=== PATIENT | female | born 1955 | race Caucasian/White ===

== ENCOUNTER → 2019-09-03 | Outpatient (CLI) | payer BC ==
--- NOTE | 2019-09-03 09:43 | FL ---
Barium swallow HISTORY: Dysphagia, weight loss, gastroesophageal reflux disease Patient was given high density barium to drink. Spot images obtained. 1 minute 11 seconds fluoroscopy time, 32 images document the procedure Swallowing mechanism is normal. There is no gastroesophageal reflux or hiatal hernia evident. Tertiar y esophageal contractions were identified. IMPRESSION: Tertiary esophageal contractions. Gastroesophageal reflux not identified during the exam.
== END | disposition home or self-care (01) ==
LOC: RADUSWWP 08:52
PROVIDERS: ATTEND Family Medicine
DX: K22.8 Other specified diseases of esophagus (principal)
CPT/HCPCS: 74220

== ENCOUNTER → 2019-10-26 | Outpatient (CLI) | payer BC ==
--- NOTE | 2019-10-26 16:56 | BD ---
EXAMINATION TYPE: Axial Bone Density DATE OF EXAM: 10/26/2019 COMPARISON: NONE CLINICAL HISTORY: 64-year-old female other disorders of continuing bone, postmenopausal screening Height: 5 FT 2 1/4 IN Weight: 138 FRAX RISK QUESTIONS: Alcohol (3 or more units per day): NO Family History (Parent hip fracture): NO Glucocorticoids (More than 3mos): NO (Ex: prednisone, prednisolone, methylprednisolone, dexamethasone, and hydrocortisone). History of Fracture in Adulthood: NO Secondary Osteoporosis: 1. Type 1 Diabetes: NO 2. Hyperthyroidism: NO 3. Menopause before 45: YES 4. Malnutrition: NO 5. Chronic liver disease: NO Rheumatoid Arthritis: NO Current Tobacco Use: NO RISK FACTORS HISTORY OF: Active: YES Postmenopausal woman: PART HYST AGE 42 SYMPTOMS AGE 43 Lost more than 2 inches in height since high school: YES MEDICATIONS: Additional Medications: AMLODIPINE, WATER PILL, Additional History: LEFT ANKLE REPLACED, CELIAC DISEASE EXAM MEASUREMENTS: Bone mineral densitometry was performed using the [employer] System. Bone mineral density as measured about the Lumbar spine is: ----- L1-L4(G/cm2): 1.351 T Score Values are as follows: ----- L2: 1.6 ----- L3: 2.8 ----- L4: 1.2 ----- L1-L4: 1.4 Bone mineral density has: INCREASED 9.8 % since study of: 2008 Bone mineral density about the R hip (g/cm2): 0.747 Bone mineral density about the L hip (g/cm2): 0.782 T Score values are as follows: -----R Neck: -2.1 -----L Neck: -1.8 -----R Total: -1.4 -----L Total: -2.0 Bone mineral density has: DECREASED -11.8 % since study of: 2008 IMPRESSION: Osteopenia (T Score between -2.5 and -1). There is slightly increased risk of fracture and the patient may be considered for treatment. Re-Screen 2-5 years. NOTE: T-SCORE=SD OF THE YOUNG ADULT MEAN.
--- NOTE | 2019-11-06 14:19 | MM ---
Reason for exam: screening (asymptomatic). Last mammogram was performed 1 year and 7 months ago. History: Patient is postmenopausal. Took hormonal contraceptives for 5 years. Physical Findings: A clinical breast exam by your physician is recommended on an annual basis and results should be correlated with mammographic findings. MG 3D Screening Mammo W/Cad Bilateral CC and MLO view(s) were taken. Prior study comparison: January 07, 2013, bilateral digital screening mammo w/CAD. December 19, 2010, bilateral digital screening mammo w/CAD. There are scattered fibroglandular densities. Benign appearing bilateral calcifications. No suspicious abnormality. No significant changes when compared with prior studies. ASSESSMENT: Benign, BI-RAD 2 RECOMMENDATION: Routine screening mammogram of both breasts in 1 year.
== END | disposition home or self-care (01) ==
LOC: RADMAMWWP 11:39
PROVIDERS: ATTEND Family Medicine
DX: Z12.31 Encounter for screening mammogram for malignant neoplasm of breast (principal); M85.80 Other specified disorders of bone density and structure, unspecified site
CPT/HCPCS: 77063; 77067; 77080

== ENCOUNTER → 2021-01-13 | Outpatient (CLI) | payer MEDICARE ==
--- NOTE | 2021-01-16 11:31 | MM ---
Reason for exam: screening (asymptomatic). Last mammogram was performed 1 year and 3 months ago. History: Patient is postmenopausal. Took hormonal contraceptives for 5 years. Physical Findings: A clinical breast exam by your physician is recommended on an annual basis and results should be correlated with mammographic findings. MG 3D Screening Mammo W/Cad Bilateral CC and MLO view(s) were taken. Prior study comparison: October 26, 2019, bilateral MG 3d screening mammo w/cad. March 21, 2018, mammogram, performed at [place]. There are scattered fibroglandular densities. There is no discrete abnormality. No significant changes when compared with prior studies. ASSESSMENT: Negative, BI-RAD 1 RECOMMENDATION: Routine screening mammogram of both breasts in 1 year.
== END | disposition home or self-care (01) ==
LOC: RADMAMWWP 08:08
PROVIDERS: ATTEND Family Medicine
DX: Z12.31 Encounter for screening mammogram for malignant neoplasm of breast (principal); Z78.0 Asymptomatic menopausal state
CPT/HCPCS: 77063; 77067

== ENCOUNTER → 2021-09-05 | Outpatient (CLI) | payer MEDICARE ==
--- NOTE | 2021-09-05 08:40 | US ---
EXAMINATION TYPE: US abdomen limited DATE OF EXAM: 09/05/2021 COMPARISON: NONE CLINICAL HISTORY: 66-year-old female Right upper quad pain R10.11. TECHNIQUE: Multiple sonographic images of the right upper quadrant are obtained. FINDINGS: EXAM MEASUREMENTS: Liver Length: 12.9 cm Gallbladder Wall: 0.2 cm CBD: 0.4 cm Right Kidney: 10.7x5.4x3.9 cm Pancreas: Only small portions of the pancreatic body are seen. Remainder is obscured by bowel gas sh adowing and body habitus. Liver: wnl Gallbladder: wnl Evidence for sonographic Gabriel's sign: No CBD: wnl Right Kidney: Superior cyst= 2.6x3.0x2.8cm. Mid cyst= 2.0x2.0x1.5cm. No hydronephrosis. IMPRESSION: Suboptimal visualization of the pancreas. A couple benign right renal cysts measuring up to 2.6 cm. O therwise, unremarkable sonographic examination of the right upper quadrant.
== END | disposition home or self-care (01) ==
LOC: RADUSWWP 08:16
PROVIDERS: ATTEND Family Medicine
DX: N28.1 Cyst of kidney, acquired (principal)
CPT/HCPCS: 76705

== ENCOUNTER 2021-09-26 09:16 | Emergency (ER) | payer MEDICARE ==
[2021-09-26 09:20] VITALS: BP 154/86; PULSE 69; RESP 18; TEMP 97.7
[2021-09-26 09:55] LABS: Basophils # (A) 0.1 k/uL (0-0.2); Basophils % (A) 1 %; Eosinophils # (A) 0.1 k/uL (0-0.7); Eosinophils % (A) 3 %; HCT 43.1 % (34.0-46.0); HGB 14.5 gm/dL (11.4-16.0); Lymphocytes # (A) 1.4 k/uL (1.0-4.8); Lymphocytes % (A) 27 %; MCH 31.5 pg (25.0-35.0); MCHC 33.6 g/dL (31.0-37.0); MCV 93.7 fL (80.0-100.0); Mean Platelet Volume 7.7; Monocytes # (A) 0.3 k/uL (0-1.0); Monocytes % (A) 6 %; Neutrophils # (A) 3.1 k/uL (1.3-7.7); Neutrophils % (A) 62 %; Platelet Count 341 k/uL (150-450); RDW 12.3 % (11.5-15.5); WBC 5.1 k/uL (3.8-10.6)
[2021-09-26 10:00] LABS: Appearance,Urine Clear (Clear); Bacteria,Urine Rare /hpf; Bilirubin,Urine Negative (Negative); Blood,Urine Trace (Negative); Color,Urine Yellow; Glucose,Urine (UA) Negative (Negative); Ketones,Urine Negative (Negative); Leukocyte Esterase,Urine Negative (Negative); Mucus,Urine Rare /hpf; Nitrite,Urine Negative (Negative); PH, Urine 6.5 (5.0-8.0); Protein,Urine Negative (Negative); RBC,Urine 1 /hpf (0-5); Specific Gravity,Urine 1.009 (1.001-1.035); Squamous Epithelial Cell,Urine <1 /hpf (0-4); Urobilinogen,Urine <2.0 mg/dL (<2.0); WBC,Urine 1 /hpf (0-5)
[2021-09-26 10:14] LABS: ALT 20 U/L (4-34); AST 27 U/L (14-36); African American GFR (CKD) >90 (>60 ml/min/1.73 sqM); Albumin 4.8 g/dL (3.5-5.0); Alkaline Phosphatase 123 U/L (38-126); Anion Gap 9 mmol/L; Blood Urea Nitrogen 17 mg/dL (7-17); Calcium 9.8 mg/dL (8.4-10.2); Carbon Dioxide 25 mmol/L (22-30); Chloride 105 mmol/L (98-107); Glucose 99 mg/dL (74-99); Non-African American GFR(CKD) 86 (>60 ml/min/1.73 sqM); Potassium 4.1 mmol/L (3.5-5.1); Sodium 139 mmol/L (137-145); Total Bilirubin 0.7 mg/dL (0.2-1.3); Total Protein 8.1 g/dL (6.3-8.2)
--- NOTE | 2021-09-26 11:14 | ED ---
General Adult HPI - General Chief complaint: Recheck/Abnormal Lab/Rx Stated complaint: UTI Time Seen by Provider: 09/26/21 09:24 Source: patient, RN notes reviewed Mode of arrival: ambulatory Limitations: no limitations - History of Present Illness Initial comments: 66 show female presented for possible urinary tract infection. Patient states she was diagnosed outpatient. Patient states that she would see to phone call today stating that her urine culture came back resistant. Patient states that her symptoms are improved now though she states she's been drinking a large amount of water no fevers chills no flank pain no other complaints. - Related Data Home Medications Medication Instructions Recorded Confirmed Ciprofloxacin HCl [Cipro] 500 mg PO Q12H 09/26/21 09/26/21 Folic Acid 1 mg PO DAILY 09/26/21 09/26/21 Hydrochlorothiazide 12.5 mg PO DAILY 09/26/21 09/26/21 [hydroCHLOROthiazide] amLODIPine [Norvasc] 5 mg PO DAILY 09/26/21 09/26/21 Allergies Allergy/AdvReac Type Severity Reaction Status Date / Time atenolol [From Tenormin] Allergy Rash/Hives Verified 09/26/21 10:11 clonidine [From Catapres] Allergy Unknown Verified 09/26/21 10:11 dapsone Allergy Rash/Hives Verified 09/26/21 10:11 felodipine [From Plendil] Allergy Unknown Verified 09/26/21 10:11 losartan [From Cozaar] Allergy Rash/Hives Verified 09/26/21 10:11 mafenide [From Sulfamylon] Allergy Rash/Hives Verified 09/26/21 10:11 montelukast [From Singulair] Allergy Rash/Hives Verified 09/26/21 10:11 Penicillins Allergy Rash/Hives Verified 09/26/21 10:11 simvastatin [From Zocor] Allergy Unknown Verified 09/26/21 10:11 Review of Systems ROS Statement: Those systems with pertinent positive or pertinent negative responses have been documented in the HPI. ROS Other: All systems not noted in ROS Statement are negative. Past Medical History Past Medical History: No Reported History History of Any Multi-Drug Resistant Organisms: None Reported Past Surgical History: No Surgical Hx Reported Past Psychological History: No Psychological Hx Reported Smoking Status: Never smoker Past Alcohol Use History: Occasional Past Drug Use History: None Reported General Exam Limitations: no limitations General appearance: alert, in no apparent distress Head exam: Present: atraumatic, normocephalic, normal inspection Eye exam: Present: normal appearance, PERRL, EOMI. Absent: scleral icterus, conjunctival injection, periorbital swelling ENT exam: Present: normal exam, normal oropharynx, mucous membranes moist Neck exam: Present: normal inspection, full ROM. Absent: tenderness, meningismus, lymphadenopathy Respiratory exam: Present: normal lung sounds bilaterally. Absent: respiratory distress, wheezes, rales, rhonchi, stridor Cardiovascular Exam: Present: regular rate, normal rhythm, normal heart sounds. Absent: systolic murmur, diastolic murmur, rubs, gallop, clicks GI/Abdominal exam: Present: soft, normal bowel sounds. Absent: distended, tenderness, guarding, rebound, rigid Back exam: Absent: CVA tenderness (R), CVA tenderness (L) Course Vital Signs 09/26/21 09:16 Temperature 97.7 F Pulse Rate 69 Respiratory 18 Rate Blood Pressure 154/86 O2 Sat by Pulse 98 Oximetry Medical Decision Making - Medical Decision Making Patient's urine cultures shows 50-100,000 Pseudomonas patient is asymptomatic labs and urine unremarkable. I did discuss case with medicine who recommended the patient to be discharged as this was most likely contaminant. - Lab Data Result diagrams: 09/26/21 09:38 09/26/21 09:38 Lab Results 09/26/21 09/26/21 09/26/21 Range/Units 09:38 09:38 09:38 WBC 5.1 (3.8-10.6) k/uL RBC 4.60 (3.80-5.40) m/uL Hgb 14.5 (11.4-16.0) gm/dL Hct 43.1 (34.0-46.0) % MCV 93.7 (80.0-100.0) fL MCH 31.5 (25.0-35.0) pg MCHC 33.6 (31.0-37.0) g/dL RDW 12.3 (11.5-15.5) % Plt Count 341 (150-450) k/uL MPV 7.7 Neutrophils % 62 % Lymphocytes % 27 % Monocytes % 6 % Eosinophils % 3 % Basophils % 1 % Neutrophils # 3.1 (1.3-7.7) k/uL Lymphocytes # 1.4 (1.0-4.8) k/uL Monocytes # 0.3 (0-1.0) k/uL Eosinophils # 0.1 (0-0.7) k/uL Basophils # 0.1 (0-0.2) k/uL Sodium 139 (137-145) mmol/L Potassium 4.1 (3.5-5.1) mmol/L Chloride 105 (98-107) mmol/L Carbon Dioxide 25 (22-30) mmol/L Anion Gap 9 mmol/L BUN 17 (7-17) mg/dL Creatinine 0.73 (0.52-1.04) mg/dL Est GFR (CKD-EPI)AfAm >90 (>60 ml/min/1.73 sqM) Est GFR (CKD-EPI)NonAf 86 (>60 ml/min/1.73 sqM) Glucose 99 (74-99) mg/dL Calcium 9.8 (8.4-10.2) mg/dL Total Bilirubin 0.7 (0.2-1.3) mg/dL AST 27 (14-36) U/L ALT 20 (4-34) U/L Alkaline Phosphatase 123 (38-126) U/L Total Protein 8.1 (6.3-8.2) g/dL Albumin 4.8 (3.5-5.0) g/dL Urine Color Yellow Urine Appearance Clear (Clear) Urine pH 6.5 (5.0-8.0) Ur Specific [place] 1.009 (1.001-1.035) Urine Protein Negative (Negative) Urine Glucose (UA) Negative (Negative) Urine Ketones Negative (Negative) Urine Blood Trace H (Negative) Urine Nitrite Negative (Negative) Urine Bilirubin Negative (Negative) Urine Urobilinogen <2.0 (<2.0) mg/dL Ur Leukocyte Esterase Negative (Negative) Urine RBC 1 (0-5) /hpf Urine WBC 1 (0-5) /hpf Ur Squamous Epith Cells <1 (0-4) /hpf Urine Bacteria Rare H (None) /hpf Urine Mucus Rare H (None) /hpf Disposition Clinical Impression: Urinary frequency Disposition: HOME SELF-CARE Condition: Stable Additional Instructions: Please return to the Emergency Department if symptoms worsen or any other concerns. Is patient prescribed a controlled substance at d/c from ED?: No Referrals: Silvestre Moise DO [Primary Care Provider] - 1-2 days Time of Disposition: 11:14
--- NOTE | 2021-09-26 11:30 | P.CONS ---
History of Present Illness - Reason for Consult Possible hospitalization - History of Present Illness 66-year-old female was sent in for possible urinary tract infection from PCPs office. Patient had symptoms of dysuria or increased urinary frequency and pressure in the superior week area for because of which a urinalysis was done and patient was given Cipro. Later on patient had urine cultures that came back in the PCPs office which showed Pseudomonas 50,000 100,000 and resistant to Cipro because of which patient was sent to ER. Patient here doesn't have symptoms of dysuria does have increased urinary frequency but she attributes to increased by mouth intake of water. Urine analysis mildly abnormal but not impressive for urinary tract infection and urine cultures from PCPs office showed less than 100,000 colonies which is not consistent with urinary tract infection patient doesn't have any fever chills either. Patient doesn't need to be hospitalized can be discharged and will not require any antibiotics same thing was discussed with the patient. REVIEW OF SYSTEMS: CONSTITUTIONAL: No fever, no malaise, no fatigue. HEENT: No recent visual problems or hearing problems. Denied any sore throat. CARDIOVASCULAR: No chest pain, orthopnea, PND, no palpitations, no syncope. PULMONARY: No shortness of breath, no cough, no hemoptysis. GASTROINTESTINAL: No diarrhea, no nausea, no vomiting, no abdominal pain. NEUROLOGICAL: No headaches, no weakness, no numbness. HEMATOLOGICAL: Denies any bleeding or petechiae. GENITOURINARY: Denies any burning micturition, frequency, or urgency. MUSCULOSKELETAL/RHEUMATOLOGICAL: Denies any joint pain, swelling, or any muscle pain. ENDOCRINE: Denies any polyuria or polydipsia. The rest of the 14-point review of systems is negative. PHYSICAL EXAMINATION: GENERAL: The patient is alert and oriented x3, not in any acute distress. Well d eveloped, well nourished. HEENT: Pupils are round and equally reacting to light. EOMI. No scleral icterus. No conjunctival pallor. Normocephalic, atraumatic. No pharyngeal erythema. No thyromegaly. CARDIOVASCULAR: S1 and S2 present. No murmurs, rubs, or gallops. PULMONARY: Chest is clear to auscultation, no wheezing or crackles. ABDOMEN: Soft, nontender, nondistended, normoactive bowel sounds. No palpable organomegaly. MUSCULOSKELETAL: No joint swelling or deformity. EXTREMITIES: No cyanosis, clubbing, or pedal edema. NEUROLOGICAL: Gross neurological examination did not reveal any focal deficits. SKIN: No rashes. Assessment and plan -Possibility of urinary tract infection which was ruled out patient overall symptomatology, lab workup is not consistent with urinary tract infection and do not believe patient will require any antibiotics patient is hemodynamically stable can be discharged without antibiotics same thing was informed to the ER physician I do not believe patient will need hospitalization. -Hypertension continue with amlodipine and hydrochlorothiazide Patient can be discharged from ER from medical perspective without any antibiotics. Past Medical History Past Medical History: No Reported History History of Any Multi-Drug Resistant Organisms: None Reported Past Surgical History: No Surgical Hx Reported Past Psychological History: No Psychological Hx Reported Smoking Status: Never smoker Past Alcohol Use History: Occasional Past Drug Use History: None Reported Medications and Allergies Home Medications Medication Instructions Recorded Confirmed Type Ciprofloxacin HCl [Cipro] 500 mg PO Q12H 09/26/21 09/26/21 History Folic Acid 1 mg PO DAILY 09/26/21 09/26/21 History Hydrochlorothiazide 12.5 mg PO DAILY 09/26/21 09/26/21 History [hydroCHLOROthiazide] amLODIPine [Norvasc] 5 mg PO DAILY 09/26/21 09/26/21 History Allergies Allergy/AdvReac Type Severity Reaction Status Date / Time atenolol [From Tenormin] Allergy Rash/Hives Verified 09/26/21 10:11 clonidine [From Catapres] Allergy Unknown Verified 09/26/21 10:11 dapsone Allergy Rash/Hives Verified 09/26/21 10:11 felodipine [From Plendil] Allergy Unknown Verified 09/26/21 10:11 losartan [From Cozaar] Allergy Rash/Hives Verified 09/26/21 10:11 mafenide [From Sulfamylon] Allergy Rash/Hives Verified 09/26/21 10:11 montelukast [From Singulair] Allergy Rash/Hives Verified 09/26/21 10:11 Penicillins Allergy Rash/Hives Verified 09/26/21 10:11 simvastatin [From Zocor] Allergy Unknown Verified 09/26/21 10:11 Physical Exam Vitals: Vital Signs Temp Pulse Resp BP Pulse Ox 09/26/21 09:16 97.7 F 69 18 154/86 98 Intake and Output 09/25/21 09/26/21 09/26/21 22:59 06:59 14:59 Other: Weight 63.503 kg Results CBC & Chem 7: 09/26/21 09:38 09/26/21 09:38 Labs: Abnormal Lab Results - Last 24 Hours (Table) 09/26/21 Range/Units 09:38 Urine Blood Trace H (Negative) Urine Bacteria Rare H (None) /hpf Urine Mucus Rare H (None) /hpf
== END 2021-09-26 11:20 | disposition home or self-care (01) ==
LOC: EC 09:16
DX: R35.0 Frequency of micturition (principal); Z79.899 Other long term (current) drug therapy
CPT/HCPCS: 36415; 80053; 81001; 85025; 87040; 99283

== ENCOUNTER → 2021-10-06 | Outpatient (CLI) | payer MEDICARE ==
--- NOTE | 2021-10-06 09:52 | NM ---
EXAMINATION TYPE: NM hepatobiliary w CCK DATE OF EXAM: 10/06/2021 COMPARISON: NONE INDICATION: R 10.11, R14.0 TECHNIQUE: After the intravenous administration of 4.1 mCi Tc 99m Mebrofenin hepatobiliary scintigrap hy is performed. Images were obtained immediately post injection. FINDINGS: There is prompt uptake and excretion of radiotracer by the liver. Extrahepatic ducts are identified at 2 minutes. The gallbladder is visualized within 4 minutes. Small bowel activity is noted within 40 minutes. At one hour CCK was administered, patient was injected with 1.3 mcg of Kinevac, and gallbladder eject ion fraction is calculated at 99 %, which is markedly elevated. (Normal >35% and <80%.). IMPRESSION: 1. Correlate for biliary hyperkinesia.
== END | disposition home or self-care (01) ==
LOC: RADNMMAIN 06:47
PROVIDERS: ATTEND Family Medicine
DX: R10.11 Right upper quadrant pain (principal); R14.0 Abdominal distension (gaseous)
CPT/HCPCS: 78227; A9537; J2805

== ENCOUNTER → 2022-02-23 | Outpatient (CLI) | payer MEDICARE ==
--- NOTE | 2022-02-26 08:41 | BD ---
EXAMINATION TYPE: Axial Bone Density DATE OF EXAM: 02/23/2022 COMPARISON: NONE CLINICAL HISTORY: 66 years year old Female. ICD-10 CODE: M84.80 DISORDER OF BONE Height: 62 Weight: 140.6 FRAX RISK QUESTIONS: Alcohol (3 or more units per day): NO Family History (Parent hip fracture): NO Glucocorticoids (More than 3mos): NO History of Fracture in Adulthood: NO Secondary Osteoporosis: 1. Type 1 Diabetes: NO 2. Hyperthyroidism: NO 3. Menopause before 45: YES 4. Malnutrition: NO 5. Chronic liver disease: NO Rheumatoid Arthritis: NO Current Tobacco Use: NO RISK FACTORS HISTORY OF: Hip Fracture (Right/Left): NO Spine Fracture: NO History of Wrist Fracture: NO Surgery to Spine/Hip(right/left)/Wrist (right/left): NO Family History of Osteoporosis: NO Active: YES Diet low in dairy products/other sources of calcium: YES Postmenopausal woman: YES Take estrogen and/or progesterone medications: NO Lost more than 2 inches in height since high school: NO Poor Health: NO Hyperparathyroidism: NO Adrenal Insufficiency: NO MEDICATIONS: Prednisone or other steroids: NO Thyroid Medications: NO Osteoporosis Medications: NO Additional Medications: BP MEDS, CHOLESTEROL, FOLIC ACID, VIT D, EXAM MEASUREMENTS: Bone mineral densitometry was performed using the [employer] System. Bone mineral density as measured about the Lumbar spine is: ----- L1-L4(G/cm2): 1.295 T Score Values are as follows: ----- L1: -0.3 ----- L2: 0.9 ----- L3: 2.3 ----- L4: 0.9 ----- L1-L4: 1.0 Bone mineral density has: DECREASED 4.8 % since study of: 10/26/2019 Bone mineral density about the R hip (g/cm2): 0.727 Bone mineral density about the L hip (g/cm2): 0.771 T Score values are as follows: -----R Neck: -2.2 -----L Neck: -1.9 -----R Total: -1.6 -----L Total: -1.8 Bone mineral density has: NO CHANGE 0.0 % since study of: 10/26/2019 FRAX%s: The graph provided illustrates a 12.6% chance for a major osteoporotic fx and a 2.4% chance f or the hips probability for fx in 10 years time. IMPRESSION: Osteopenia (T Score between -2.5 and -1). There is slightly increased risk of fracture and the patient may be considered for treatment. Re-Screen 2-5 years. NOTE: T-SCORE=SD OF THE YOUNG ADULT MEAN.
--- NOTE | 2022-02-26 11:45 | MM ---
Reason for Exam: Screening (asymptomatic). Last mammogram was performed 1 year(s) and 1 month(s) ago. Patient History: Menarche at age 12. First Full-Term at age 22. Hysterectomy at age 42. Postmenopausal. Patient used Hormonal Contraceptives for 5 years. Risk Values: Nicole 5 year model risk: 1.5%. NCI Lifetime model risk: 5.4%. Prior Study Comparison: 03/21/2018 Screening Mammogram, [place]. 10/26/2019 Bilateral Screening Mammogram, [facility]. 01/13/2021 Bilateral Screening Mammogram, [facility]. Tissue Density: The breast tissue is heterogeneously dense. This may lower the sensitivity of mammography. Findings: Analyzed By CAD. There is no suspicious group of microcalcifications or new suspicious mass in either breast. Overall Assessment: Negative, BI-RAD 1 Management: Screening Mammogram of both breasts in 1 year. A clinical breast exam by your physician is recommended on an annual basis and results should be correlated with mammographic findings. Electronically signed and approved by: Zan Aguilar M.D. Radiologis
== END | disposition home or self-care (01) ==
LOC: RADMAMWWP 15:07
PROVIDERS: ATTEND Family Medicine
DX: Z12.31 Encounter for screening mammogram for malignant neoplasm of breast (principal); M85.89 Other specified disorders of bone density and structure, multiple sites; Z78.0 Asymptomatic menopausal state
CPT/HCPCS: 77063; 77067; 77080

== ENCOUNTER 2022-03-02 11:12 | Emergency (ER) | payer MEDICARE ==
[2022-03-02] MEDS ORDERED: METOCLOPRAMIDE 5 MG/ML 2 ML VIAL IVP STA (11:44)
[2022-03-02] MEDS ORDERED: SODIUM CHLORIDE 0.9% 1,000 ML IV STA (11:44)
--- NOTE | 2022-03-02 11:53 | ED ---
General Adult HPI - General Chief complaint: Dizziness Stated complaint: dizziness, low BP Time Seen by Provider: 03/02/22 11:22 Source: patient Mode of arrival: wheelchair Limitations: no limitations - History of Present Illness Initial comments: Dictation was produced using [employer] dictation software. please excuse any grammatical, word or spelling errors. Chief Complaint: 66-year-old female presents to the emergency department for acute episode of headache and dizziness History of Present Illness: Before meals 6-year-old female approximately 30 minutes prior to arrival she began experiencing dizziness and headache that began simultaneously. Patient states she has the pain it feels like it's behind both eyes. Patient does have a history of headaches though her headaches are very different from what she is expressing today. Patient reports that she also has associated dizziness and feelings of vertigo. She does sense the room is spinning. Patient denies any numbness or T-wave to the arms or legs she does however complain of some mild sensory paresthesias to the bilateral upper extremities. Since being in the emergency department should her dizziness has essentially resolved however she still does have a mild headache and lightheadedness. She reports that her symptoms are exacerbated with any sort of movements. She does complain of photophobia. The ROS documented in this emergency department record has been reviewed and confirmed by me. Those systems with pertinent positive or negative responses have been documented in the HPI. All other systems are other negative and/or noncontributory. PHYSICAL EXAM: General Impression: Alert and oriented x3, not in acute distress HEENT: Normocephalic atraumatic, extra-ocular movements intact, pupils equal and reactive to light bilaterally, mucous membranes moist. Cardiovascular: Heart regular rate and rhythm Chest: Able to complete full sentences, no retractions, no tachypnea Abdomen: abdomen soft, non-tender, non-distended, no organomegaly Musculoskeletal: Pulses present and equal in all extremities, no peripheral edema Motor: no focal deficits noted Neurological: CN II-XII grossly intact, no focal motor or sensory deficits noted, no nystagmus, vertigo was not reproducible with position changes Skin: Intact with no visualized rashes Psych: Normal affect and mood ED course: 66-year-old well-appearing female presents to the emergency [facility] for acute episode of headache, dizziness and vertigo. Her vertigo has resolved. She does continue to have a mild headache and lightheadedness. Vital signs upon arrival are within acceptable limits. Patient denies any vertigo at the bedside. EKG interpretation: Ventricular rate 57, sinus bradycardia,. Interval to 47, QS 113, QTc 457. No ID prolongation, no QTC prolongation, no ST or T-wave changes noted. No old EKG for comparison Overall, this EKG is unremarkable Laboratory evaluation obtained. CBC metabolic panel is unremarkable. Computed tomography scan of brain is negative. Patient given headache cocktail and observed the emergency department for approximately 3 hours and 40 minutes. She's seen and evaluated at bedside at 10:50 PM found to be stable medical con dition she reports complete resolution of her symptoms. Patient will be discharged advised follow-up with primary care doctor. - Related Data Home Medications Medication Instructions Recorded Confirmed Ciprofloxacin HCl [Cipro] 500 mg PO Q12H 09/26/21 09/26/21 Folic Acid 1 mg PO DAILY 09/26/21 09/26/21 amLODIPine [Norvasc] 5 mg PO DAILY 09/26/21 09/26/21 hydroCHLOROthiazide 12.5 mg PO DAILY 09/26/21 09/26/21 Allergies Allergy/AdvReac Type Severity Reaction Status Date / Time atenolol [From Tenormin] Allergy Rash/Hives Verified 03/02/22 11:20 clonidine [From Catapres] Allergy Unknown Verified 03/02/22 11:20 dapsone Allergy Rash/Hives Verified 03/02/22 11:20 felodipine [From Plendil] Allergy Unknown Verified 03/02/22 11:20 gluten Allergy Unknown Verified 03/02/22 11:20 losartan [From Cozaar] Allergy Rash/Hives Verified 03/02/22 11:20 mafenide [From Sulfamylon] Allergy Rash/Hives Verified 03/02/22 11:20 montelukast [From Singulair] Allergy Rash/Hives Verified 03/02/22 11:20 Penicillins Allergy Rash/Hives Verified 03/02/22 11:20 simvastatin [From Zocor] Allergy Unknown Verified 03/02/22 11:20 Review of Systems ROS Statement: Those systems with pertinent positive or pertinent negative responses have been documented in the HPI. ROS Other: All systems not noted in ROS Statement are negative. Past Medical History Past Medical History: No Reported History History of Any Multi-Drug Resistant Organisms: None Reported Past Surgical History: No Surgical Hx Reported Past Psychological History: No Psychological Hx Reported Smoking Status: Never smoker Past Alcohol Use History: Occasional Past Drug Use History: None Reported General Exam Limitations: no limitations Course Vital Signs 03/02/22 03/02/22 03/02/22 11:18 12:00 13:00 Temperature 97.5 F L Pulse Rate 64 60 90 Respiratory 18 16 18 Rate Blood Pressure 132/67 137/69 128/64 O2 Sat by Pulse 99 99 100 Oximetry Medical Decision Making - Lab Data Result diagrams: 03/02/22 11:51 03/02/22 12:12 Lab Results 03/02/22 03/02/22 Range/Units 11:51 12:12 WBC 4.5 (3.8-10.6) k/uL RBC 4.26 (3.80-5.40) m/uL Hgb 13.3 (11.4-16.0) gm/dL Hct 39.6 (34.0-46.0) % MCV 93.1 (80.0-100.0) fL MCH 31.3 (25.0-35.0) pg MCHC 33.7 (31.0-37.0) g/dL RDW 12.7 (11.5-15.5) % Plt Count 283 (150-450) k/uL MPV 7.9 Neutrophils % 70 % Lymphocytes % 18 % Monocytes % 5 % Eosinophils % 3 % Basophils % 1 % Neutrophils # 3.2 (1.3-7.7) k/uL Lymphocytes # 0.8 L (1.0-4.8) k/uL Monocytes # 0.2 (0-1.0) k/uL Eosinophils # 0.1 (0-0.7) k/uL Basophils # 0.1 (0-0.2) k/uL Sodium 137 (137-145) mmol/L Potassium 3.7 (3.5-5.1) mmol/L Chloride 107 (98-107) mmol/L Carbon Dioxide 25 (22-30) mmol/L Anion Gap 5 mmol/L BUN 13 (7-17) mg/dL Creatinine 0.59 (0.52-1.04) mg/dL Est GFR (CKD-EPI)AfAm >90 (>60 ml/min/1.73 sqM) Est GFR (CKD-EPI)NonAf >90 (>60 ml/min/1.73 sqM) Glucose 154 H (74-99) mg/dL Calcium 8.9 (8.4-10.2) mg/dL Magnesium 2.0 (1.6-2.3) mg/dL Disposition Clinical Impression: Headache Disposition: HOME SELF-CARE Condition: Good Instructions (If sedation given, give patient instructions): Dizziness (ED) Is patient prescribed a controlled substance at d/c from ED?: No Referrals: Silvestre Moise DO [Primary Care Provider] - 1-2 days Time of Disposition: 14:52
[2022-03-02 12:05] LABS: Basophils # (A) 0.1 k/uL (0-0.2); Basophils % (A) 1 %; Eosinophils # (A) 0.1 k/uL (0-0.7); Eosinophils % (A) 3 %; HCT 39.6 % (34.0-46.0); HGB 13.3 gm/dL (11.4-16.0); Lymphocytes # (A) 0.8 k/uL (1.0-4.8); Lymphocytes % (A) 18 %; MCH 31.3 pg (25.0-35.0); MCHC 33.7 g/dL (31.0-37.0); MCV 93.1 fL (80.0-100.0); Mean Platelet Volume 7.9; Monocytes # (A) 0.2 k/uL (0-1.0); Monocytes % (A) 5 %; Neutrophils # (A) 3.2 k/uL (1.3-7.7); Neutrophils % (A) 70 %; Platelet Count 283 k/uL (150-450); RBC 4.26 m/uL (3.80-5.40); RDW 12.7 % (11.5-15.5); WBC 4.5 k/uL (3.8-10.6)
--- NOTE | 2022-03-02 12:39 | CT ---
EXAMINATION TYPE: CT brain wo con DATE OF EXAM: 03/02/2022 COMPARISON: None HISTORY: dizziness CT DLP: 1041.[address] of the brain was performed. The ventricles, basal cisterns and sulci overlying the cerebral convexities demonstrate mild enlargem ent. There is no evidence for intracranial hemorrhage or sulcal effacement. There is decreased attenuation about the periventricular white matter and deep white matter of both c erebral hemispheres, compatible with chronic small vessel ischemia. Differential diagnosis does inclu de demyelination. No mass effects are seen.No midline shift. Osseous calvarium is intact. If symptoms persist consider MRI. IMPRESSION: 1. Age related atrophic and chronic small vessel ischemic change without acute intracranial process s een at this time.
[2022-03-02 12:48] LABS: African American GFR (CKD) >90 (>60 ml/min/1.73 sqM); Anion Gap 5 mmol/L; Blood Urea Nitrogen 13 mg/dL (7-17); Calcium 8.9 mg/dL (8.4-10.2); Carbon Dioxide 25 mmol/L (22-30); Chloride 107 mmol/L (98-107); Glucose 154 mg/dL (74-99); Non-African American GFR(CKD) >90 (>60 ml/min/1.73 sqM); Potassium 3.7 mmol/L (3.5-5.1); Sodium 137 mmol/L (137-145)
[2022-03-02] MEDS ORDERED: diphenhydrAMINE 50 MG/ML 1 ML VIAL IVP STA (13:02)
[2022-03-02] MEDS ORDERED: KETOROLAC 15 MG/ML 1 ML VIAL IVP STA (13:02)
[2022-03-02] MEDS ORDERED: ONDANSETRON 4 MG/2 ML VIAL IVP STA (13:02)
[2022-03-02 15:12] VITALS: BP 114/57; PULSE 85; RESP 16; TEMP 97.6
== END 2022-03-02 15:20 | disposition home or self-care (01) ==
LOC: EC 11:12
DX: R51.9 Headache, unspecified (principal); Z88.0 Allergy status to penicillin; Z88.1 Allergy status to other antibiotic agents; Z88.9 Allergy status to unspecified drugs, medicaments and biological substances; Z91.048 Other nonmedicinal substance allergy status; Z88.6 Allergy status to analgesic agent
CPT/HCPCS: 36415; 93005; 80048; 83735; 85025; 70450; 96375; 99284; 96374; 96361; J1200; J2765; J2405; J1885

== ENCOUNTER → 2023-06-11 | Outpatient (CLI) | payer MEDICARE ==
--- NOTE | 2023-06-12 07:40 | MM ---
Reason for Exam: Screening (asymptomatic). Last mammogram was performed 1 year(s) and 4 month(s) ago. Patient History: Menarche at age 12. First Full-Term at age 22. Hysterectomy at age 42. Postmenopausal. Patient used Hormonal Contraceptives for 5 years. Risk Values: Nicole 5 year model risk: 1.5%. NCI Lifetime model risk: 5.0%. Prior Study Comparison: 03/02/2016 Screening Mammogram, [place]. 03/21/2018 Screening Mammogram, [place]. 10/26/2019 Bilateral Screening Mammogram, [facility]. 01/13/2021 Bilateral Screening Mammogram, [facility]. 02/23/2022 Bilateral MG 3D screening mammo w/cad, [facility]. Tissue Density: There are scattered fibroglandular densities. Findings: Analyzed By CAD. There is no suspicious group of microcalcifications or new suspicious mass in either breast. Benign calcifications within both breasts. Overall Assessment: Benign, BI-RAD 2 Management: Screening Mammogram of both breasts in 1 year. A clinical breast exam by your physician is recommended on an annual basis and results should be correlated with mammographic findings. Note on Nicole scores and lifetime risk: 1. A Nicole score greater than 3% is considered moderate risk. If this is the case, consider specialist referral to assess eligibility for a risk reducing agent. If overall lifetime risk for the development of breast cancer is 20% or higher, the patient may qualify for future screening with alternating mammogram and breast MRI. Electronically signed and approved by: Dinh Taveras D.O.
== END | disposition home or self-care (01) ==
LOC: RADMAMWWP 06:55
PROVIDERS: ATTEND Family Medicine
DX: Z12.31 Encounter for screening mammogram for malignant neoplasm of breast (principal); Z78.0 Asymptomatic menopausal state
CPT/HCPCS: 77063; 77067

== ENCOUNTER 2023-11-10 19:12 | Observation (INO) | payer MEDICARE ==
--- NOTE | 2023-11-10 20:04 | ED ---
Chest Pain HPI - General Source: patient, RN notes reviewed Mode of arrival: ambulatory Limitations: no limitations <Shanthi Haider - Last Filed: 11/10/23 20:02> <Lobito Nava - Last Filed: 11/11/23 00:50> - General Stated Complaint: chest pain heart palpitations elevated BP Time Seen by Provider: 11/10/23 20:02 - History of Present Illness Initial Comments: Patient is a 68-year-old female presented to the ER with chief complaint of palpitations and chest pain. Patient states she has noticed increase in palpitations and a pressure sensation in her chest in the past few days. She also notices that her blood pressure has been higher than normal. She is on antihypertensive medication and did take them today. Is reporting shortness of breath and nausea. Denies fevers, chills or nightsweats. (Shanthi Haider) Dictation was produced using [employer] dictation software. please excuse any grammatical, word or spelling errors. Chief Complaint: 68-year-old female presents with chest pain History of Present Illness: Patient 68-year-old female she has past medical history of hypertension. States that for the last few days she has been developed being chest pressure. States that it radiates on the left upper extremity. States that she does not have any symptoms currently. States that her chest symptoms are associated with palpitations. Patient reports extensive history of coronary artery disease in her family. States that all of her siblings along with both of her parents had acute coronary syndrome between the ages of 40 and 60. She has seen Dr. Chun in the past for leaky valve and abnormal EKG. The ROS documented in this emergency department record has been reviewed and confirmed by me. Those systems with pertinent positive or negative responses have been documented in the HPI. All other systems are other negative and/or noncontributory. (Lobito Nava) - Related Data Home Medications Medication Instructions Recorded Confirmed Ciprofloxacin HCl [Cipro] 500 mg PO Q12H 09/26/21 09/26/21 Folic Acid 1 mg PO DAILY 09/26/21 09/26/21 amLODIPine [Norvasc] 5 mg PO DAILY 09/26/21 09/26/21 hydroCHLOROthiazide 12.5 mg PO DAILY 09/26/21 09/26/21 Allergies Allergy/AdvReac Type Severity Reaction Status Date / Time atenolol [From Tenormin] Allergy Rash/Hives Verified 03/02/22 11:20 clonidine [From Catapres] Allergy Unknown Verified 03/02/22 11:20 dapsone Allergy Rash/Hives Verified 03/02/22 11:20 felodipine [From Plendil] Allergy Unknown Verified 03/02/22 11:20 gluten Allergy Unknown Verified 03/02/22 11:20 losartan [From Cozaar] Allergy Rash/Hives Verified 03/02/22 11:20 mafenide [From Sulfamylon] Allergy Rash/Hives Verified 03/02/22 11:20 montelukast [From Singulair] Allergy Rash/Hives Verified 03/02/22 11:20 Penicillins Allergy Rash/Hives Verified 03/02/22 11:20 simvastatin [From Zocor] Allergy Unknown Verified 03/02/22 11:20 Review of Systems ROS Other: All systems not noted in ROS Statement are negative. <Shanthi Haider - Last Filed: 11/10/23 20:02> ROS Other: All systems not noted in ROS Statement are negative. <Lobito Nava - Last Filed: 11/11/23 00:50> ROS Statement: Those systems with pertinent positive or pertinent negative responses have been documented in the HPI. Past Medical History Past Medical History: No Reported History History of Any Multi-Drug Resistant Organisms: None Reported Past Surgical History: No Surgical Hx Reported Past Psychological History: No Psychological Hx Reported Smoking Status: Never smoker Past Alcohol Use History: Occasional Past Drug Use History: None Reported <Shanthi Haider - Last Filed: 11/10/23 20:02> General Exam <Shanthi Haider - Last Filed: 11/10/23 20:02> <Lobito Nava - Last Filed: 11/11/23 00:50> - General Exam Comments Initial Comments: Visual Physical Exam Vital signs reviewed General: Well-appearing, nontoxic, no acute distress. Head: Normocephalic, atraumatic Eyes: PERRLA, EOMI ENT: Airway patent Chest: Nonlabored breathing Skin: No visual rash, normal skin tone Neuro: Alert and oriented 3 Musculoskeletal: No gross abnormalities (Shanthi Haider) PHYSICAL EXAM: General Impression: Alert and oriented x3, not in acute distress HEENT: Normocephalic atraumatic, extra-ocular movements intact, pupils equal and reactive to light bilaterally, mucous membranes moist. Cardiovascular: Heart regular rate and rhythm Chest: Able to complete full sentences, no retractions, no tachypnea Abdomen: abdomen soft, non-tender, non-distended, no organomegaly Musculoskeletal: Pulses present and equal in all extremities, no peripheral edema Motor: no focal deficits noted Neurological: CN II-XII grossly intact, no focal motor or sensory deficits noted Skin: Intact with no visualized rashes Psych: Normal affect and mood (Lobito Nava) Course Vital Signs 11/10/23 20:05 Temperature 98.5 F Pulse Rate 69 Respiratory 18 Rate Blood Pressure 137/78 O2 Sat by Pulse 97 Oximetry Chest Pain MDM <Shanthi Haider - Last Filed: 11/10/23 20:02> <Lobito Nava - Last Filed: 11/11/23 00:50> - MDM I performed the quick note portion of this chart. Electronically signed by Shanthi Haider PA-C (Shanthi Haider) Was pt. sent in by a medical professional or institution (KIM Sanchez, RETAIL SELLING FLOOR LEADER, urgent care, hospital, or halfway...) When possible be specific @ -No Did you speak to anyone other than the patient for history (EMS, parent, family, police, friend...)? What history was obtained from this source @ -No Did you review nursing and triage notes (agree or disagree)? Why? @ -I reviewed and agree with nursing and triage notes Were old charts reviewed (outside hosp., previous admission, EMS record, old EKG, old radiological studies, urgent care reports/EKG's, halfway records)? Report findings @ -No old charts were reviewed Differential Diagnosis (chest pain, altered mental status, abdominal pain women, abdominal pain men, vaginal bleeding, musculoskeletal, weakness, fever, dyspnea, syncope, headache, dizziness, GI bleed, back pain, seizure, CVA, palpatations, mental health)? @ -Differential Chest Pain: Stable Angina, Unstable Angina, STEMI, NSTEMI Aortic Dissection, Pneumothorax, Musculoskeletal, Esophageal Spasm GERD, Cholecystitis, Pancreatitis, Zoster, this is not meant to be an all-inclusive list. EKG interpreted by me (3pts min.). @ -My EKG interpretation: Ventricular rate 63, sinus rhythm,. 02 25, QRS 108, QTc 399. No ME prolongation, no QTC prolongation, no ST or T-wave changes noted. Overall, this EKG is unremarkable X-rays interpreted by me (1pt min.). @ -Chest x-ray shows no acute processes CT interpreted by me (1pt min.). @ -None done U/S interpreted by me (1pt. min.). @ -None done What testing was considered but not performed or refused? (CT, X-rays, U/S, labs)? Why? @ -None What meds were considered but not given or refused? Why? @ -None Did you discuss the management of the patient with other professionals (professionals i.e. , PA, RETAIL SELLING FLOOR LEADER, lab, RT, psych nurse, social insurance analyst, helpdesk analyst, teacher, control systems drafting officer, case advocate)? Give summary @ -Case discussed with hospitalist for admission Was smoking cessation discussed for >3mins.? @ -No Was critical care preformed (if so, how long)? @ -No Were there social determinants of health that impacted care today? How? (Homelessness, low income, unemployed, alcoholism, drug addiction, transportation, low edu. Level, literacy, decrease access to med. care, [place] [facility], rehab)? @ -No Was there de-escalation of care discussed even if they declined (Discuss DNR or withdrawal of care, Hospice)? DNR status @ -No What co-morbidities impacted this encounter? (DM, HTN, Smoking, COPD, CAD, Cancer, CVA, ARF, Chemo, Hep., AIDS, mental health diagnosis, sleep apnea, morbid obesity)? @ -None Was patient admitted / discharged? Hospital course, mention meds given and route, prescriptions, significant lab abnormalities, going to OR and other pertinent info. @ -60-year-old female presents to the emergency department atypical chest pain typical features. Vital signs are stable. EKG is nonischemic. Laboratory evaluation obtained found to be unremarkable including 2 negative serial troponins. Disposition options were discussed. Patient agreeable to observation admission. She does have significant high risk features with extensive family history. Patient given aspirin. She is agreeable to plan. Undiagnosed new problem with uncertain prognosis? @ -No Drug Therapy requiring intensive monitoring for toxicity (Heparin, Nitro, Insulin, Cardizem)? @ -No Were any procedures done? @ -No Diagnosis/symptom? Acute, or Chronic, or Acute on Chronic? Uncomplicated (without systemic symptoms) or Complicated (systemic symptoms)? @ -Chest pain Side effects of treatment? @ -No Exacerbation, Progression, or Severe Exacerbation? @ -No Poses a threat to life or bodily function? How? (Chest pain, [place], PA, pneumonia, PE, COPD, DKA, ARF, appy, cholecystitis, CVA, Diverticulitis, Homicidal, Suicidal, threat to staff... and all critical care pts) @ -yes (Lobito Nava) Disposition <Shanthi Haider - Last Filed: 11/10/23 20:02> Decision Time: 00:50 <Lobito Nava - Last Filed: 11/11/23 00:50> Clinical Impression: Chest pain Disposition: ADMITTED IP TO THIS HOSP Condition: Fair Referrals: Silvestre Moise DO [Primary Care Provider] - 1-2 days
[2023-11-10 20:51] LABS: Basophils % (A) 1 %; Eosinophils # (A) 0.1 k/uL (0-0.7); Eosinophils % (A) 1 %; HGB 14.2 gm/dL (11.4-16.0); Lymphocytes # (A) 1.1 k/uL (1.0-4.8); Lymphocytes % (A) 13 %; MCH 31.9 pg (25.0-35.0); MCHC 33.7 g/dL (31.0-37.0); MCV 94.6 fL (80.0-100.0); Mean Platelet Volume 7.6; Monocytes # (A) 0.5 k/uL (0-1.0); Monocytes % (A) 6 %; Neutrophils # (A) 6.5 k/uL (1.3-7.7); Neutrophils % (A) 78 %; Platelet Count 272 k/uL (150-450); RBC 4.44 m/uL (3.80-5.40); RDW 12.8 % (11.5-15.5); WBC 8.3 k/uL (3.8-10.6)
[2023-11-10 21:08] LABS: ALT 22 U/L (4-34); AST 28 U/L (14-36); African American GFR (CKD) >90 (>60 ml/min/1.73 sqM); Albumin 4.4 g/dL (3.5-5.0); Alkaline Phosphatase 113 U/L (38-126); Anion Gap 6 mmol/L; Blood Urea Nitrogen 16 mg/dL (7-17); Calcium 9.5 mg/dL (8.4-10.2); Carbon Dioxide 27 mmol/L (22-30); Chloride 107 mmol/L (98-107); Glucose 99 mg/dL (74-99); Magnesium 2.4 mg/dL (1.6-2.3); Non-African American GFR(CKD) >90 (>60 ml/min/1.73 sqM); Potassium 4.1 mmol/L (3.5-5.1); Sodium 140 mmol/L (137-145); Total Bilirubin 0.5 mg/dL (0.2-1.3); Total Protein 6.8 g/dL (6.3-8.2)
--- NOTE | 2023-11-10 21:16 | XR ---
EXAMINATION TYPE: XR chest 2V DATE OF EXAM: 11/10/2023 9:12 PM CLINICAL INDICATION:Female, 68 years old with history of Chest Pain; COMPARISON: Chest radiographs from 11/10/2023 TECHNIQUE: XR chest 2V Frontal and lateral views of the chest. FINDINGS: Lungs/Pleura: There is flattening of the diaphragm with increased lucency of the lungs. No evidence o f pneumothorax, pleural effusion or focal consolidation. Pulmonary vascularity: Unremarkable. Heart/mediastinum: Cardiomediastinal silhouette is unremarkable. Musculoskeletal: No acute osseous pathology. IMPRESSION: No acute cardiopulmonary disease/process.
[2023-11-10 21:18] LABS: INR 0.9 (<1.2); Partial Thromboplastin Time 22.2 sec (22.0-30.0); Prothrombin Time 9.7 sec (10.0-12.5)
[2023-11-11] MEDS ORDERED: NITROGLYCERIN SL TABS 0.4 MG TAB SUBLINGUAL PRN ×2 (00:43→08:36)
[2023-11-11] MEDS: ASPIRIN 81 MG PO STA (00:49)
[2023-11-11] MEDS: SODIUM CHLORIDE 0.9% 1,000 ML IV SCH ×2 (05:12→14:52)
--- NOTE | 2023-11-11 05:22 | P.HPIM ---
History of Present Illness H&P Date: 11/11/23 Chief Complaint: Chest pain 68-year-old female with hypertension history of TIA Patient coming in with an episode of chest pain. She reports that she was fine yesterday morning on Saturday however around the afternoon she started having palpitations she checked her blood pressure and found it elevated 168/89 after which she started having left-sided chest pain that radiated to the left arm she described it as severe 8 out of 10 in severity for which she decided to come i [facility] the hospital for evaluation. This episode was not associated with any dizziness lightheadedness profuse sweating or shortness of breath. She denies any nausea vomiting. She reports that this episode was not precipitated by any stress or physical activity. She reports that she never had a heart attack before however she did have a stress test over a year ago and was told that she has a leaky valve but otherwise no blockages. Patient did not take anything for this pain she reports that pain subsided gradually. Patient immediately decided to come into the hospital as she had very strong history of cardiac disease in the family with both parents lost to heart attacks and she has a sister with CABG. Otherwise patient denies any fevers chills headache nausea vomiting trouble breathing abdominal pain changes in bowel urinary habits denies any bleeding She denies any tobacco smoking illicit drugs or heavy alcohol Currently patient feels very comfortable denies any chest pain or trouble breathing review of systems Pertinent positives as noted in HPI. All other systems were reviewed and are negative on exam Constitutional: No acute distress, conversant, pleasant Eyes: Anicteric sclerae, moist conjunctiva, Pupils equal round reactive to light ENMT: NC/AT Oropharynx clear, no erythema, or exudates Neck: Supple, no masses, or JVD No carotid bruits No thyromegaly Lungs: Clear to auscultation Clear to percussion Normal respiratory effort, no accessory muscle use Cardiovascular: Heart regular in rate and rhythm, No murmurs, gallops, or rubs No peripheral edema Abdominal: Soft Nontender, no guarding, rebound or rigidity Abdomen moving with respiration Normoactive bowel sounds Extremities: No digital cyanosis No clubbing Pedal pulses intact and symmetrical Radial pulses intact and symmetrical No calf tenderness Psychiatric: Alert and oriented to person, place and time Appropriate affect fair judgement Neuro Muscles Strength 5/5 in all 4 extremities Sensation to light touch grossly present throughout Cranial nerves II-XII grossly intact Past Medical History Past Medical History: Hypertension History of Any Multi-Drug Resistant Organisms: None Reported Past Surgical History: No Surgical Hx Reported Past Psychological History: No Psychological Hx Reported Smoking Status: Never smoker Past Alcohol Use History: Occasional Past Drug Use History: None Reported Medications and Allergies Home Medications Medication Instructions Recorded Confirmed Type Ciprofloxacin HCl [Cipro] 500 mg PO Q12H 09/26/21 09/26/21 History Folic Acid 1 mg PO DAILY 09/26/21 09/26/21 History amLODIPine [Norvasc] 5 mg PO DAILY 09/26/21 09/26/21 History hydroCHLOROthiazide 12.5 mg PO DAILY 09/26/21 09/26/21 History Allergies Allergy/AdvReac Type Severity Reaction Status Date / Time atenolol [From Tenormin] Allergy Rash/Hives Verified 03/02/22 11:20 clonidine [From Catapres] Allergy Unknown Verified 03/02/22 11:20 dapsone Allergy Rash/Hives Verified 03/02/22 11:20 felodipine [From Plendil] Allergy Unknown Verified 03/02/22 11:20 gluten Allergy Unknown Verified 03/02/22 11:20 losartan [From Cozaar] Allergy Rash/Hives Verified 03/02/22 11:20 mafenide [From Sulfamylon] Allergy Rash/Hives Verified 03/02/22 11:20 montelukast [From Singulair] Allergy Rash/Hives Verified 03/02/22 11:20 Penicillins Allergy Rash/Hives Verified 03/02/22 11:20 simvastatin [From Zocor] Allergy Unknown Verified 03/02/22 11:20 Physical Exam Vitals: Vital Signs Temp Pulse Resp BP Pulse Ox 11/10/23 20:05 98.5 F 69 18 137/78 97 Intake and Output 11/10/23 11/10/23 11/11/23 14:59 22:59 06:59 Other: Weight 61.235 kg Results CBC & Chem 7: 11/10/23 20:15 11/10/23 20:15 Labs: Abnormal Lab Results - Last 24 Hours (Table) 11/10/23 11/10/23 Range/Units 20:15 20:15 PT 9.7 L (10.0-12.5) sec Magnesium 2.4 H (1.6-2.3) mg/dL Assessment and Plan Assessment: 68-year-old female with hypertension history of TIA coming in for left-sided chest pain I discussed the case with ED doctor accepted the admission for atypical chest pain rule out acute coronary syndrome with anticipated length of stay less than 2 midnights Atypical chest pain Continue with aspirin, patient is allergic to statin Troponins negative x 2 EKG normal sinus rhythm, T wave inversion in inferior leads III, Patient currently denies any chest pain Cardiac monitoring Monitor vital signs Cardiology consult Nitro sublingual as needed for chest pain Gentle IV fluid hydration normal saline 75 cc/h Check lipid panel Chest x-ray no acute cardiopulmonary disease Hypertension controlled Continue with hydrochlorothiazide and amlodipine home medications Blood work unremarkable white count 8.3 hemoglobin 14.2 Sodium 140 potassium 4.1 BUN 16 creatinine 0.67 Magnesium 2.4 Tropes negative x 2 Full code DVT prophylaxis heparin subcu 3 times daily
[2023-11-11] MEDS ORDERED: HEPARIN SODIUM,PORCINE 10,000 UNIT in SODIUM CHLORIDE 0.9% 1,000 ML IRRIGATION PRN (07:00)
[2023-11-11] MEDS ORDERED: HEPARIN SODIUM,PORCINE (1 ML) 2,500 UNIT in SODIUM CHLORIDE 0.9% 250 ML IRRIGATION PRN (07:00)
[2023-11-11] MEDS ORDERED: ALPRAZolam 0.25 MG TAB PO PRN (08:36)
[2023-11-11] MEDS ORDERED: ALPRAZolam 0.5 MG TAB PO PRN (08:36)
[2023-11-11] MEDS ORDERED: hydroCHLOROthiazide 12.5 MG CAP PO SCH (09:00)
[2023-11-11] MEDS: HEPARIN SODIUM,PORCINE 5,000 UNIT/ML 1 ML VIAL SQ SCH (09:17)
[2023-11-11] MEDS: amLODIPine 5 MG TAB PO SCH (09:17)
[2023-11-11] MEDS: LORATADINE 10 MG TAB PO SCH (09:17)
[2023-11-11] MEDS: FOLIC ACID 1 MG TAB PO SCH (09:17)
[2023-11-11] MEDS: ATORVASTATIN 80 MG TAB PO STA (09:17)
[2023-11-11] MEDS: ASPIRIN 325 MG TAB PO STA (09:18)
[2023-11-11] MEDS: CHOLECALCIFEROL 25 MCG (1000 IU) TABLET PO SCH (09:18)
--- NOTE | 2023-11-11 11:40 | P.PN ---
Subjective Progress Note Date: 11/11/23 Please refer to the H&P for full documentation and physical exam. 68 year old F with PMH of HTN presents to the ED for elevated BP of 168/89 along with palpitations and left sided chest tightness. In the ED she underwent extensive evaluation. BP 137/78 HR 69 T 98.5F RR 18 97% on RA. CBC, Coag panel, CMP performed significant for PT 9.7. Mag 2.4. Troponin < 0.012 x 3. EKG sinus arrhythmia, first degree AV block CXR negative Patient was given a dose of ASA 324 mg PO x 1 and admitted for chest pain, rule out ACS, Cardiology evaluation. Patient has an acute diagnosis of chest pain that poses a threat to life or bodily function. Chest pain: Troponins trended and ACS ruled out. Cardiology consult pending. Echocardiogram ordered. Telemetry monitoring. HLDA: Crestor 5 mg PO QHS. Hypertension: Amlodipine 5 mg PO QD. Seasonal allergies: Justina 180 mg PO QD. CODE STATUS: FULL CODE DVT Prophylaxis: Heparin SQ Objective - Vital Signs Vital signs: Vital Signs Temp 98.5 F 11/10/23 20:05 Pulse 64 11/11/23 05:33 Resp 16 11/11/23 05:33 BP 124/75 11/11/23 05:33 Pulse Ox 99 11/11/23 05:33 FiO2 Intake & Output 11/10/23 11/11/23 11/11/23 18:59 06:59 18:59 Weight 61.235 kg - Labs CBC & Chem 7: 11/10/23 20:15 11/10/23 20:15 Labs: Abnormal Lab Results - Last 24 Hours (Table) 11/10/23 11/10/23 Range/Units 20:15 20:15 PT 9.7 L (10.0-12.5) sec Magnesium 2.4 H (1.6-2.3) mg/dL
--- NOTE | 2023-11-11 12:18 | P.CRDCN ---
History of Present Illness Consult date: 11/11/23 Consult reason: chest pain History of present illness: History of present illness: This is a 68-year-old female patient of Dr. Chun with past medical history of hypertension, hyperlipidemia, family history of premature coronary artery disease. We have been asked to evaluate the patient for chest pain. Patient states that yesterday about 10 AM she started having palpitations and her blood pressure was elevated. By 5 PM she started having pressure in her chest with pain going down her left arm. She gives history that she has had 2 brothers both parents with coronary artery disease and a younger sister is status post three-vessel disease. She last saw Dr. Chun in September of this year and has a follow-up appointment at 6 months. Patient is seen today in the emergency center waiting for a bed on the cardiac stepdown unit. She is currently pain- free. EKG sinus rhythm with no acute changes, incomplete right bundle branch block Chest x-ray: No acute process CBC INR normal. Electrolytes and renal function within normal limits. Troponin negative x 3. Magnesium 2.4. Liver function test are normal. Home cardiac medications: Amlodipine 5 mg daily, rosuvastatin 5 mg at bedtime. Review Of Systems: At the time of my exam: CONSTITUTIONAL: Denies fever or chills. HEENT: Denies blurred vision, vision changes, or eye pain. Denies hemoptysis CARDIOVASCULAR: Denies chest pain. Denies orthopnea. Denies PND. Denies palpitations RESPIRATORY: Denies shortness of breath. GASTROINTESTINAL: Denies abdominal pain. Denies nausea or vomiting. HEMATOLOGIC: Denies bleeding disorders. GENITOURINARY: Denies any blood in urine. SKIN: Denies pruitis. Denies rash. Physical examination: Gen: This is a 68-year-old female with no acute distress VS: reviewed HEENT: Head is atraumatic, normocephalic. Pupils equal, round. Sclerae is anicte bettie. NECK: Supple. No JVD. LUNGS: Clear to auscultation. No wheezes or rhonchi. No intercostal re tractions. HEART: Regular rate and rhythm. No murmur. ABDOMEN: Soft No tenderness. EXTREMITIES: No pedal edema. No calf tenderness. NEUROLOGICAL: Patient is awake, alert and oriented x3. Assessment: Unstable angina Hypertension Hyperlipidemia Family history of premature coronary artery disease Plan: Resume patient's home cardiac medications Schedule patient for cardiac catheterization with Dr. Chun today Obtain 2-D echocardiogram and Doppler study to assess cardiac structure and function Further recommendations to follow based upon clinical course Thank you kindly for this consultation. Nurse practitioner note has been reviewed, I agree with documented findings and plan of care. Patient was seen and examined. Past Medical History Past Medical History: Hypertension History of Any Multi-Drug Resistant Organisms: None Reported Past Surgical History: No Surgical Hx Reported Past Psychological History: No Psychological Hx Reported Smoking Status: Never smoker Past Alcohol Use History: Occasional Past Drug Use History: None Reported Medications and Allergies Home Medications Medication Instructions Recorded Confirmed Type Folic Acid 1 mg PO DAILY 09/26/21 11/11/23 History amLODIPine [Norvasc] 5 mg PO DAILY 09/26/21 11/11/23 History Cholecalciferol (Vitamin D3) 75 mcg PO DAILY 11/11/23 11/11/23 History [Vitamin D3 (3000 Iu)] Fexofenadine HCl [Justina Allergy] 180 mg PO DAILY 11/11/23 11/11/23 History Rosuvastatin Calcium 5 mg PO HS 11/11/23 11/11/23 History Allergies Allergy/AdvReac Type Severity Reaction Status Date / Time atenolol [From Tenormin] Allergy Rash/Hives Verified 11/11/23 08:06 clonidine [From Catapres] Allergy Unknown Verified 11/11/23 08:06 dapsone Allergy Rash/Hives Verified 11/11/23 08:06 felodipine [From Plendil] Allergy Unknown Verified 11/11/23 08:06 gluten Allergy rash & Verified 11/11/23 08:06 vomiting losartan [From Cozaar] Allergy Rash/Hives Verified 11/11/23 08:06 mafenide [From Sulfamylon] Allergy Rash/Hives Verified 11/11/23 08:06 montelukast [From Singulair] Allergy Rash/Hives Verified 11/11/23 08:06 Penicillins Allergy Rash/Hives Verified 11/11/23 08:06 simvastatin [From Zocor] Allergy Unknown Verified 11/11/23 08:06 Physical Exam Vitals: Vital Signs Temp Pulse Resp BP Pulse Ox 11/11/23 05:33 64 16 124/75 99 11/11/23 00:54 62 16 142/78 98 11/10/23 20:05 98.5 F 69 18 137/78 97 Intake and Output 11/10/23 11/11/23 11/11/23 22:59 06:59 14:59 Other: Weight 61.235 kg Results 11/10/23 20:15 11/10/23 20:15 Cardiac Enzymes 11/10/23 11/10/23 11/10/23 Range/Units 20:15 20:15 23:23 AST 28 (14-36) U/L Troponin I <0.012 <0.012 (0.000-0.034) ng/mL 11/11/23 Range/Units 03:29 AST (14-36) U/L Troponin I <0.012 (0.000-0.034) ng/mL Coagulation 11/10/23 Range/Units 20:15 PT 9.7 L (10.0-12.5) sec APTT 22.2 (22.0-30.0) sec CBC 11/10/23 Range/Units 20:15 WBC 8.3 (3.8-10.6) k/uL RBC 4.44 (3.80-5.40) m/uL Hgb 14.2 (11.4-16.0) gm/dL Hct 42.0 (34.0-46.0) % Plt Count 272 (150-450) k/uL Comprehensive Metabolic Panel 11/10/23 Range/Units 20:15 Sodium 140 (137-145) mmol/L Potassium 4.1 (3.5-5.1) mmol/L Chloride 107 (98-107) mmol/L Carbon Dioxide 27 (22-30) mmol/L BUN 16 (7-17) mg/dL Creatinine 0.67 (0.52-1.04) mg/dL Glucose 99 (74-99) mg/dL Calcium 9.5 (8.4-10.2) mg/dL AST 28 (14-36) U/L ALT 22 (4-34) U/L Alkaline Phosphatase 113 (38-126) U/L Total Protein 6.8 (6.3-8.2) g/dL Albumin 4.4 (3.5-5.0) g/dL Current Medications Generic Name Dose Route Start Last Admin Trade Name Freq PRN Reason Stop Dose Admin Amlodipine Besylate 5 mg 11/11/23 09:00 Amlodipine 5 Mg Tab PO DAILY [facility] Aspirin 81 mg 11/12/23 09:00 Aspirin 81 Mg PO DAILY [facility] Atorvastatin Calcium 10 mg 11/11/23 21:00 Atorvastatin 10 Mg Tab PO HS [facility] Cholecalciferol 75 mcg 11/11/23 09:00 Cholecalciferol 25 Mcg (1000 Iu) Tablet PO DAILY [facility] Folic Acid 1 mg 11/11/23 09:00 Folic Acid 1 Mg Tab PO DAILY [facility] Heparin Sodium (Porcine) 5,000 unit 11/11/23 08:00 Heparin Sodium,Porcine 5,000 Unit/Ml 1 Ml Vial SQ Q8HR [facility] Sodium Chloride 1,000 mls @ 75 mls/hr 11/11/23 05:00 11/11/23 05:12 Saline 0.9% IV 75 mls/hr .[id number] ROMI Administration Loratadine 10 mg 11/11/23 09:00 Loratadine 10 Mg Tab PO DAILY [facility] Nitroglycerin 0.4 mg 11/11/23 00:43 Nitroglycerin Sl Tabs 0.4 Mg Tab SUBLINGUAL Q5M PRN Chest Pain Intake and Output 11/10/23 11/11/23 11/11/23 22:59 06:59 14:59 Other: Weight 61.235 kg 11/10/23 20:15 11/10/23 20:15
[2023-11-11] MEDS: MIDAZOLAM 2 MG/2 ML VIAL IVP ONE (12:54)
[2023-11-11] MEDS: fentaNYL (PF) 50 MCG/ML 2 ML AMP IVP ONE (12:54)
[2023-11-11] MEDS: LIDOCAINE 1% INJ 10MG/ML (20 ML MDV) SQ ONE (12:55)
[2023-11-11] MEDS: VERAPAMIL SYRINGE (5 MG/10 ML) INTRAARTER ONE (12:56)
[2023-11-11] MEDS: HEPARIN SODIUM 1,000 UN/ML (10ML VL) IV ONE (12:59)
[2023-11-11] MEDS: IOPAMIDOL-370 100ML BTL INJ ONE (13:16)
[2023-11-11] MEDS ORDERED: RX INFO: IV CONTRAST WAS GIVEN 1 EACH MISC MISCELLANE PRN (13:16)
--- NOTE | 2023-11-11 13:19 | P.PCN ---
Date of Procedure: 11/11/23 Operative Findings: CARDIAC CATHETERIZATION PERFORMING PHYSICIAN: Newton Chun MD, RPVI PROCEDURE PERFORMED: 1. Selective right and left coronary angiogram 2. Left heart catheterization 3. Ultrasound-guided access of the right radial artery INDICATION: Chest discomfort concerning for unstable angina COMPLICATION: None APPROACH: Right radial artery LEVEL OF SEDATION: Moderate with a sedation length of 14 minutes minutes PROCEDURE DESCRIPTION: After obtaining an informed consent, the patient was brought to cardiac shipyard laborer. Local anesthesia was performed using lidocaine subcutaneously. The right radial artery was cannulated using Seldinger technique, the guidewire passed easily, following that we advanced a 5-Ecuadorean sheath dilator assembly, the wire and dilator were removed and sheath was flushed. Following that, 2 mg of verapamil along with 4000 unit heparin were given. Selective right and left coronary angiogram using a 6-Ecuadorean JR4 and JL 3.5 catheters. Following that we did left heart catheterization using 6-Ecuadorean pigtail catheter. The procedure was completed there was no complication. SELECTIVE CORONARY ANGIOGRAM: The right coronary artery: Large-caliber vessel and a dominant vessel. The RCA appears to have mild disease only. Distally bifurcates into PDA and PLV branches both appear to be angiographically normal Left main: Is angiographically normal. Bifurcates into an LCx and LAD The left circumflex: Large-caliber vessel and nondominant vessel. The LCx is angiographically normal and gives rise into an OM1 which appears to be normal The left anterior descending artery: Has a tubular lesion in the midportion appears to be in the range of 40 to 50%. HEMODYNAMICS: LVEDP was 4 mmHg with no significant gradient across aortic valve CONCLUSION: 1. Intermediate tubular lesion involving the mid LAD appeared to be in the range of 40 to 50% 2. Low left-sided filling pressure POSTPROCEDURE MANAGEMENT: Consider medical treatment Consider FFR of the LAD if the patient remains symptomatic in spite of maximized medical treatment
[2023-11-11] MEDS: ATORVASTATIN 10 MG TAB PO SCH (20:30)
[2023-11-12 06:40] LABS: African American GFR (CKD) >90 (>60 ml/min/1.73 sqM); Anion Gap -1 mmol/L; Blood Urea Nitrogen 12 mg/dL (7-17); Calcium 9.1 mg/dL (8.4-10.2); Carbon Dioxide 30 mmol/L (22-30); Chloride 110 mmol/L (98-107); Glucose 86 mg/dL (74-99); Non-African American GFR(CKD) >90 (>60 ml/min/1.73 sqM); Potassium 4.5 mmol/L (3.5-5.1); Sodium 139 mmol/L (137-145)
[2023-11-12] MEDS ORDERED: ASPIRIN 325 MG TAB PO SCH (09:00)
[2023-11-12] MEDS: ASPIRIN 81 MG PO SCH (09:05)
[2023-11-12] MEDS: ISOSORBIDE MONONITRATE ER 30 MG TAB.ER.24H PO SCH (09:06)
--- NOTE | 2023-11-12 09:42 | P.PN ---
Subjective Progress Note Date: 11/12/23 Consult reason: chest pain History of present illness: This is a 68-year-old female patient of Dr. Chun with past medical history of hypertension, hyperlipidemia, family history of premature coronary artery disease. We have been asked to evaluate the patient for chest pain. Patient states that yesterday about 10 AM she started having palpitations and her blood pressure was elevated. By 5 PM she started having pressure in her chest with pain going down her left arm. She gives history that she has had 2 brothers both parents with coronary artery disease and a younger sister is status post three-vessel disease. She last saw Dr. Chun in September of this year and has a follow-up appointment at 6 months. Patient is seen today in the emergency [address] [facility] waiting for a bed on the cardiac stepdown unit. She is currently pain-free. EKG sinus rhythm with no acute changes, incomplete right bundle branch block Chest x-ray: No acute process CBC INR normal. Electrolytes and renal function within normal limits. Troponin negative x 3. Magnesium 2.4. Liver function test are normal. Home cardiac medications: Amlodipine 5 mg daily, rosuvastatin 5 mg at bedtime. 11/11 Yesterday, patient underwent cardiac catheterization with Dr. Chun which revealed intermediate tubular lesion involving the mid LAD appears to be in the range of 40 to 50%, low left-sided filling pressure. Consider medical management. Can consider FFR of the LAD if the patient remains symptomatic in spite of maximized medical treatment. Patient denies having any chest pain at t his time. Heart rate is in the 50s and 60s, blood pressure 146/68, pulse ox 99% on room air. Repeat blood work reveals potassium 4.5, BUN 12 and creatinine 0.67. Echocardiogram is pending. Physical examination: Gen: This is a 68-year-old female with no acute distress VS: reviewed HEENT: Head is atraumatic, normocephalic. Pupils equal, round. Sclerae is anicteric. LUNGS: Clear to auscultation. No wheezes or rhonchi. No intercostal retractions. HEART: Regular rate and rhythm. No murmur. EXTREMITIES: No pedal edema. No calf tenderness. NEUROLOGICAL: Patient is awake, alert and oriented x3. Assessment: Unstable angina Hypertension Hyperlipidemia Family history of premature coronary artery disease Plan: Continue patient's home cardiac medications Obtain 2-D echocardiogram and Doppler study to assess cardiac structure and function If echocardiogram is unremarkable, patient is cleared for discharge and may follow-up with Dr. Chun in the office in 2 weeks. Nurse practitioner note has been reviewed, I agree with documented findings and plan of care. Patient was seen and examined. Objective - Vital Signs Vital signs: Vital Signs Temp 97.9 F 11/12/23 01:47 Pulse 58 L 11/12/23 01:47 Resp 15 11/11/23 19:29 BP 123/72 11/12/23 01:47 Pulse Ox 98 11/12/23 01:47 FiO2 Intake & Output 11/11/23 11/12/23 11/12/23 18:59 06:59 18:59 Intake Total 218 Balance 218 Weight 61.235 kg Intake: IV 100 Oral 118 Other: Voiding Method Toilet Toilet - Labs CBC & Chem 7: 11/10/23 20:15 11/12/23 06:19 Labs: Abnormal Lab Results - Last 24 Hours (Table) 11/12/23 Range/Units 06:19 Chloride 110 H (98-107) mmol/L
[2023-11-12 09:48] VITALS: BP 146/68; PULSE 56; RESP 18; TEMP 97.7
[2023-11-12 11:35] LABS: Chol/HDL Ratio 2.07 Ratio; LDL Cholesterol,Calculated 61.7 mg/dL (0.0-131.0)
--- NOTE | 2023-11-12 12:12 | CA ---
Transthoracic Echo Report Name: Velvet Piña Age: 68 Gender: F : 1955 Exam Date: 11/12/2023 08:40 Exam Location: [place] [facility] Ht (in): 63 Wt (lb): 135 Ordering Physician: Jason Villalba MD Attending/Referring Phys: Fabric Machine Operator Irene Montano RDCS Procedure CPT: Indications: CP Cardiac Hx: Technical Quality: Fair Contrast 1: Total Dose (mL): Contrast 2: Total Dose (mL): MEASUREMENTS (Male / Female) Normal Values 2D ECHO LV Diastolic Diameter PLAX 3.6 cm 4.2 - 5.9 / 3.9 - 5.3 cm LV Systolic Diameter PLAX 2.2 cm IVS Diastolic Thickness 1.2 cm 0.6 - 1.0 / 0.6 - 0.9 cm LVPW Diastolic Thickness 1.1 cm 0.6 - 1.0 / 0.6 - 0.9 cm LV Relative Wall Thickness 0.6 RV Internal Dim ED PLAX 4.1 cm LA Volume 60.4 cm??? 18 - 58 / 22 - 52 cm??? LA Volume Index 36.4 cm???/m??? 16 - 28 cm???/m??? M-MODE Aortic Root Diameter MM 2.5 cm LA Systolic Diameter MM 4.8 cm LA Ao Ratio MM 1.9 AV Cusp Separation MM 1.8 cm DOPPLER AV Peak Velocity 115.3 cm/s AV Peak Gradient 5.3 mmHg AV Mean Velocity 88.3 cm/s AV Mean Gradient 3.3 mmHg AV Velocity Time Integral 27.9 cm LVOT Peak Velocity 77.5 cm/s LVOT Peak Gradient 2.4 mmHg LVOT Velocity Time Integral 20.6 cm Mitral E Point Velocity 59.8 cm/s Mitral A Point Velocity 84.3 cm/s Mitral E to A Ratio 0.7 MV E' Velocity 5.7 cm/s Mitral E to MV E' Ratio 10.5 TR Peak Velocity 273.3 cm/s TR Peak Gradient 29.9 mmHg Right Ventricular Systolic Press 34.9 mmHg FINDINGS Left Ventricle Mildly increased left ventricular wall thickness. Left ventricular cavity size normal. Normal left ventricular systolic function with no obvious regional wall motion abnormalities. Left ventricular ejection fraction is estimated at 55-60 %. Right Ventricle Mild right ventricular dilatation. Mild pulmonary hypertension. Right ventricular systolic pressure estimated at 35 mm hg. Right Atrium Mild right atrial dilatation. Left Atrium Mildly increased left atrial volume. Interatrial septal aneurysm. Probable patent foramen ovale. Mitral Valve Structurally normal mitral valve. Mild mitral annular calcification. Trace mitral regurgitation. Aortic Valve Trileaflet aortic valve. No aortic valve stenosis or regurgitation. Tricuspid Valve Structurally normal tricuspid valve. Mild tricuspid regurgitation. Pulmonic Valve Structurally normal pulmonic valve. Trace pulmonic regurgitation. Pericardium No pericardial effusion. Aorta Normal size aortic root and proximal ascending aorta. CONCLUSIONS Normal LV function Aneurysmal interatrial septum Previewed by: Dr. Trent Magallon MD (Electronically Signed) Final Date: 12 November 2023 12:12
--- NOTE | 2023-11-12 14:32 | P.DS ---
Providers Date of admission: 11/11/23 00:43 Expected date of discharge: 11/12/23 Attending physician: Brad Haynes MD Consults: 11/11/23 00:43 Consult Physician Urgent Consulting Provider: Newton Chun Consult Reason/Comments: chest pain Do you want consulting provider notified?: Yes Primary care physician: [facility] Course: Discharge Diagnosis: Unstable angina. Patient started on Imdur 30 mg daily. EKG showing sinus rhythm. Troponins negative. Lipid profile unremarkable.Patient was evaluated by counter attendant and taken for cardiac cath. Cardiac cath report stating intermediate tubular lesion involving the mid LAD approximately 40 to 50%. Planer Tailer recommending maximizing medical treatment, if patient remains symptomatic, may consider FFR of the LAD in the future. Echocardiogram completed showing preserved EF of 55 to 60% with aneurysmal interatrial septum. Discussed in detail findings of echocardiogram stating interatrial septal aneurysm with cardiac SAL[employer] MARKETING INTERN. Cardiac SAL[employer] MARKETING INTERN states counter attendant clearing patient from their perspective stating it may follow-up outpatient in office to further discuss. Interatrial septal aneurysm, possible PFO. Discussed with cardiology, counter attendant clearing patient from their perspective recommending outpatient follow-up in office in 1 week for further discussion and evaluation. Hypertension History of TIA, patient discharged home on aspirin 81 mg daily in addition to her rosuvastatin 5 mg nightly. Hospital course: Patient is a pleasant 68-year-old female with a past medical history of hypertension and TIA. She presented to the emergency department on 11/10/2023 with a chief complaint of chest pain. Vital signs upon arrival show blood pressure 137/78, heart rate 69, respiratory rate 18, temp 98.5 F, and SpO2 of 97% on room air. EKG completed showing normal sinus rhythm at 63 bpm with a first-degree AV block with AL interval of 225 ms. Chest x-ray completed negative for acute cardiopulmonary process. Labs completed and reviewed. CBC unremarkable. Coagulation profile showing slightly low PT of 9.7 otherwise nor mal findings. BMP unremarkable. Magnesium 2.4. Liver profile unremarkable. Troponin negative at less than 0.012. Patient was admitted under our services with consultation to cardiology. Troponins trended throughout the night all negative at less than 0.012 x 3 draws. Lipid profile unremarkable. Patient was evaluated by counter attendant and taken for cardiac cath. Cardiac cath report stating intermediate tubular lesion involving the mid LAD approximately 40 to 50%. Planer Tailer recommending maximizing medical treatment, if patient remains symptomatic, may consider FFR of the LAD in the future. Echocardiogram completed showing preserved EF of 55 to 60% with aneurysmal interatrial septum. Discussed in detail findings of echocardiogram stating interatrial septal aneurysm with cardiac SAL[employer] MARKETING INTERN. Cardiac SALES AND MARKETING INTERN states counter attendant clearing patient from their perspective stating it may follow-up outpatient in office to further discuss. Medically, patient is stable for discharge at this time. Will start patient on aspirin 81 mg daily for history of TIA and current concerns of PFO. Patient also discharged home on Imdur 30 mg daily and to follow-up with PCP in 1 to 2 days and with counter attendant in 1 week. Physical exam: Patient seen and examined at bedside. Vital signs reviewed and stable. General: Nontoxic, no distress and appears stated age. Derm: Skin warm and dry, normal coloration for ethnicity. Head: Atraumatic, normocephalic and symmetric. Eyes: EOMs intact, no lid lag, and anicteric sclera Mouth: no lip lesions, mucus membranes moist Cardiovascular: regular rate and rhythm with normal S1S2, no murmur, positive posterior tibial pulses bilaterally, and cap refill < 2 seconds. Lungs: Respirations even, regular, and unlabored on room air. Lungs CTA bilaterally, no rhonchi, no rales, no wheezing, and no accessory muscle usage. Abdominal: soft, nontender to palpation, no guarding, no appreciable organomegaly Ext: ROM intact. No gross muscle atrophy, no edema, no contractures Neuro: Speech clear, face symmetrical and CN II-XII grossly intact with no noted focal neuro deficits Psych: Alert and oriented to person, place, time, and situation. Appropriate and pleasant affect. A total of 37 minutes of time were spent preparing this complex discharge summary. Pt was discharged on 11/12/2023 at 2:18 PM. Patient was seen independently by Nurse Practitioner. This document was prepared using [employer] dictation software. Please allow for errors in stock supervisor while rare they do occur. Dany Antonio NP rendered care for this patient independently, reviewed the findings and plan as documented in the note above. I did not physically speak with or examine the patient on this date. Patient Condition at Discharge: Stable Plan - Discharge Summary Discharge Rx Participant: No New Discharge Prescriptions: New Isosorbide Mononitrate ER [Imdur] 30 mg PO DAILY 90 Days #90 tab Aspirin 81 mg PO DAILY 90 Days #90 tab Continue Folic Acid 1 mg PO DAILY Fexofenadine HCl [Justina Allergy] 180 mg PO DAILY amLODIPine [Norvasc] 5 mg PO DAILY Rosuvastatin Calcium 5 mg PO HS Cholecalciferol (Vitamin D3) [Vitamin D3 (3000 Iu)] 75 mcg PO DAILY Discharge Medication List Folic Acid 1 mg PO DAILY 09/26/21 [History] amLODIPine [Norvasc] 5 mg PO DAILY 09/26/21 [History] Cholecalciferol (Vitamin D3) [Vitamin D3 (3000 Iu)] 75 mcg PO DAILY 11/11/23 [History] Fexofenadine HCl [Justina Allergy] 180 mg PO DAILY 11/11/23 [History] Rosuvastatin Calcium 5 mg PO HS 11/11/23 [History] Aspirin 81 mg PO DAILY 90 Days #90 tab 11/12/23 [Rx] Isosorbide Mononitrate ER [Imdur] 30 mg PO DAILY 90 Days #90 tab 11/12/23 [Rx] Follow up Appointment(s)/Referral(s): Newton Chun MD [STAFF PHYSICIAN] - 1 Week (THE OFFICE WILL CALL YOU WITH AN APPOINTMENT DATE AND TIME) Silvestre Moise DO [Primary Care Provider] - 1-2 days Patient Instructions/Handouts: Moderate Sedation (DC), After Radial Heart Catheterization (GEN) Activity/Diet/Wound Care/Special Instructions: *NO LIFTING, PUSHING, OR PULLING ANYTHING OVER 5 POUNDS FOR 5 DAYS *NO DRIVING FOR 3 DAYS *YOU CAN REMOVE YOUR DRESSING TOMORROW BUT DO NOT SUBMERSE YOUR PUNCTURE SITE IN WATER FOR A FEW DAYS TO PREVENT INFECTION - SO NO TUB BATHS, POOLS, HOT TUBS, DISHES...ETC *ANY SIGNS OF BLEEDING (HARDNESS, SWELLING, OR EXCESSIVE BRUISING) HOLD DIRECT PRESSURE ON YOUR PUNCTURE SITE AND COME TO THE NEAREST EMERGENCY ROOM TO GET YOUR PUNCTURE SITE LOOKED AT - DO NOT DRIVE YOURSELF! EITHER CALL EMS OR HAVE SOMEONE DRIVE YOU! Follow-up with counter attendant outpatient in office for further discussion of PFO. Discharge Disposition: HOME SELF-CARE
== END 2023-11-12 15:42 | disposition home or self-care (01) ==
LOC: EC 19:12 → 6NMEDSUR 11-11 00:43
PROVIDERS: ADMIT Internal Medicine; ATTEND Internal Medicine
DX: I25.110 Atherosclerotic heart disease of native coronary artery with unstable angina pectoris (principal); I25.3 Aneurysm of heart; I44.0 Atrioventricular block, first degree; I45.10 Unspecified right bundle-branch block; I10 Essential (primary) hypertension; E78.5 Hyperlipidemia, unspecified; K90.41 Non-celiac gluten sensitivity; J30.2 Other seasonal allergic rhinitis; Z79.899 Other long term (current) drug therapy; Z88.0 Allergy status to penicillin; Z88.8 Allergy status to other drugs, medicaments and biological substances; Z86.73 Personal history of transient ischemic attack (TIA), and cerebral infarction without residual deficits; Z82.49 Family history of ischemic heart disease and other diseases of the circulatory system
CPT/HCPCS: 96372 ×2; 99285; 36415; 93005; 93306; 93458; 76937; 80061; 80053; 80048; 83735; 84484 ×2; 85025; 85610; 85730; 71046; G0378 ×2; C1769; C1894; J2250; J1644 ×2; J2001; J3010; Q9967

== ENCOUNTER → 2024-06-12 | Outpatient (CLI) | payer MEDICARE ==
--- NOTE | 2024-06-12 08:38 | MM ---
Reason for Exam: Screening (asymptomatic). Last screening mammogram was performed 12 month(s) ago. Patient History: Menarche at age 12. First Full-Term at age 22. Hysterectomy at age 42. Postmenopausal. Patient used Hormonal Contraceptives for 5 years. Risk Values: Nicole 5 year model risk: 1.5%. NCI Lifetime model risk: 4.8%. Prior Study Comparison: 03/02/2016 Screening Mammogram, [place]. 03/21/2018 Screening Mammogram, [place]. 10/26/2019 Bilateral Screening Mammogram, [facility]. 01/13/2021 Bilateral Screening Mammogram, [facility]. 02/23/2022 Bilateral MG 3D screening mammo w/cad, [facility]. 06/11/2023 Bilateral MG 3D screening mammo w/cad, [facility]. Tissue Density: The breasts are almost entirely fatty. Findings: Analyzed By CAD. Right breast: There is no suspicious group of microcalcifications or new suspicious mass. Left breast: There is no suspicious group of microcalcifications or new suspicious mass. Overall Assessment: Negative, BI-RAD 1 Management: Screening Mammogram of both breasts in [address] [facility] will attempt to contact patient to return for supplemental views and ultrasound if indicated. Patient should continue monthly self-breast exams. A clinical breast exam by your physician is recommended on an annual basis. This exam should not preclude additional follow-up of suspicious palpable abnormalities. Note on Nicole scores and lifetime risk: 1. A Nicole score greater than 3% is considered moderate risk. If this is the case, consider specialist referral to assess eligibility for a risk reducing agent. 2. If overall lifetime risk for the development of breast cancer is 20% or higher, the patient may qualify for future screening with alternating mammogram and breast MRI. [facility], , 06/12/2024 8:36 AM. Electronically signed and approved by: Lester Guillen DO
== END | disposition home or self-care (01) ==
LOC: RADMAMWWP 07:15
PROVIDERS: ATTEND Family Medicine
DX: Z12.31 Encounter for screening mammogram for malignant neoplasm of breast
CPT/HCPCS: 77063; 77067

== ENCOUNTER 2024-11-03 08:26 | Outpatient (CLI) | payer MEDICARE ==
[~2024-11-03 08:26] MED LIST: SODIUM CHLORIDE 0.9% 250 ML in EMPTY BAG 1 BAG IV PRN
[2024-11-03 08:33] VITALS: BP 143/72; PULSE 68; RESP 16; TEMP 98.1
[2024-11-03] MEDS: ZOLEDRONIC ACID 5 MG in SODIUM CHLORIDE 0.9% 100 ML IV NR (08:37)
[2024-11-03] MEDS: SODIUM CHLORIDE 0.9% 500 ML 500 ML in EMPTY BAG 1 BAG IV PRN (08:39)
== END 2024-11-03 11:11 | disposition home or self-care (01) ==
LOC: PROCWHC3 08:26
PROVIDERS: ATTEND Family Medicine
DX: M81.0 Age-related osteoporosis without current pathological fracture (principal); Z88.2 Allergy status to sulfonamides; Z88.3 Allergy status to other anti-infective agents; Z88.8 Allergy status to other drugs, medicaments and biological substances
CPT/HCPCS: 96365; J3489

== ENCOUNTER → 2025-03-18 | Outpatient (CLI) | payer MEDICARE ==
--- NOTE | 2025-03-18 09:26 | XR ---
EXAMINATION TYPE: XR finger LT DATE OF EXAM: 03/18/2025 9:10 AM COMPARISON: None CLINICAL INDICATION: Female, 69 years old with history of [id number] FINGER INJURY; [facility], pain TECHNIQUE: XR finger LT 3 views were obtained. FINDINGS: Normal alignment of the visualized joints. No acute osseous pathology is identified. No e vidence of soft tissue swelling. Multifocal degeneration changes with joint space narrowing and osteo phyte formation. There is more severe degeneration with soft tissue swelling involving the what is th ought to be the middle finger and lateral view. IMPRESSION: 1. Severe degeneration changes at the distal interphalangeal joint of the third digit without eviden ce of fracture. Mild soft tissue swelling. 2. Multifocal osteoarthrosis throughout the joints of the hand. [facility], , 03/18/2025 9:24 AM
== END | disposition home or self-care (01) ==
LOC: RADXRYALE 08:50
PROVIDERS: ATTEND Physician Assistant Medical
DX: M19.042 Primary osteoarthritis, left hand (principal)

== ENCOUNTER → 2025-03-18 | Outpatient (CLI) | payer MEDICARE ==
--- NOTE | 2025-03-18 10:14 | XR ---
EXAMINATION TYPE: XR lumbosacral spine min 4V DATE OF EXAM: 03/18/2025 9:55 AM COMPARISON: None CLINICAL INDICATION: Female, 69 years old with history of [id number] DDD; [facility], pain TECHNIQUE: XR lumbosacral spine min 4V - Frontal, lateral , bilateral oblique and coned in L5-S1 late ral views of the spine. FINDINGS: No evidence of any acute osseous pathology. No evidence of loss of vertebral body height i s seen. There is levoscoliosis apex L3 alignment of the lumbar vertebral bodies. Mild scattered disc space narrowing. Multilevel marginal osteophyte formation throughout the visualized spine. There is f acet joint arthropathy throughout the spine. Scattered at least mild neural foraminal stenosis. IMPRESSION: 1. No acute fracture. 2. Severe multilevel disc degeneration scoliosis. [facility], , 03/18/2025 10:12 AM
== END | disposition home or self-care (01) ==
LOC: RADXRYALE 09:34
PROVIDERS: ATTEND Physician Assistant Medical
DX: M51.362 Other intervertebral disc degeneration, lumbar region with discogenic back pain and lower extremity pain (principal); M41.86 Other forms of scoliosis, lumbar region
CPT/HCPCS: 72110